=== PATIENT | male | born 1930 | race Caucasian/White ===

== ENCOUNTER 2016-05-30 19:40 | Emergency (ER) | payer BC ==
[~2016-05-30] VITALS: Ht 177.8 cm; Wt 77.3 kg
[~2016-05-30 19:40] MED LIST: ALBUAER2 INH; AMLO-110 PO; ASPEC325 PO; ATV/1 PO; CEPH500C PO; FLM4 PO; LISI-725 PO; MELO15TA3 PO; MULT-897 PO; OMEG10007 PO; PROP1SOL OPB; RSTOPS OP; TEMA15CA4 PO; TRAM-10 PO; [UNRECOGNIZED DRUG - OTHER] INH
[2016-05-30 19:45] VITALS: Ht 177.8 cm; Wt 77.3 kg
[2016-05-30] MEDS ORDERED: ALBUT/IPRATROP 3MG/0.5MG NEB 3 ML VIAL INH STA (21:07)
[2016-05-30] MEDS ORDERED: SODIUM CHLORIDE 0.9% 500ML 500 ML IV STA (21:07)
[2016-05-30] MEDS ORDERED: METHYLPREDNISOLONE 125 MG VIAL IV STA (21:07)
[2016-05-30 21:15] LABS: COMPLETE YES; EOS % 2.4 %; HEMATOCRIT 40.2 % (42-52); LYMPH % 35.7 %; LYMPH ABS # 0.75 K/uL (1.2-3.4); MEAN CELL VOLUME 93.7 fL (80-100); MEAN CORPUSCULAR HEMOGLOBIN 32.6 pg (25-34); MEAN CORPUSCULAR HGB CONC 34.8 g/dl (32-36); MEAN PLATELET VOLUME 10.8 fL (7.4-10.4); MONO % 11.4 %; NEUT % 50.5 %; PLATELET COUNT 111 K/uL (130-400); RED BLOOD COUNT 4.29 M/uL (4.7-6.1)
[2016-05-30 21:18] LABS: URINE APPEARANCE CLEAR (CLEAR); URINE BILIRUBIN NEG (NEG); URINE COLOR YELLOW; URINE EPITHELIAL CELL AUTO 0-5 /lpf (0-5); URINE NITRITE NEG (NEG); URINE SPECIFIC GRAVITY 1.006 (1.000-1.030); UROBILINOGEN NEG (NEG); ZZUR CULT IF INDIC CLEAN CATCH NO
--- NOTE | 2016-05-30 21:18 | EMERGENCY ROOM VISIT NOTE ---
History Report prepared by Mando: Vasiliy Rivera Under the Supervision of: Dr. Edward Jasmine M.D. First contact with patient: 21:01 Chief Complaint: FLU LIKE SX Stated Complaint: FLU History of Present Illness The patient is an 85 year old male with COPD who presents to the Emergency Room with complaints of a persistent cough beginning one week prior to arrival. He associates congestion, subjective intermittent fever, and weakness with today's symptoms. The patient states he was seen by his doctor a week ago and was prescribed Levaquin. He states he has two doses left, but he does not believe it has helped. The patient states he was at dinner tonight, when he went to sit down and became weak. He notes he uses inhalers for his COPD, in which, he uses one before bed, and the albuterol inhaler as needed. The patient denies wearing oxygen at home. He does not believe he has been on steroids. The patient notes he received his flu and pneumonia shots this year. He denies a history of pneumonia. The patient denies shortness of breath. Source of History: patient Onset: one week [employer] Position: other (global) Quality: other (cough) Timing: other (persistent) Associated Symptoms: + cough, + fevers, + weakness, No SOB Note: Associated symptoms: congestion. Review of Systems See HPI for pertinent positives & negatives. A total of 10 systems reviewed and were otherwise negative. Past Medical & Surgical Medical Problems: (1) Asthma (2) Hernia (3) HTN (hypertension) Family History Diabetes mellitus FH: heart disease Hypertension Social History Smoking Status: Never Smoker Alcohol Use: none Drug Use: none Marital Status: Occupation Status: retired Current/Historical Medications Scheduled Albuterol (Ventolin), 2 PUFFS INH QID PRN Amlodipine (Norvasc), 5 MG PO QAM Aspirin Enteric Coated (Ecotrin Or Generic *), 325 MG PO PRN Fish Oil ([place]-3), 1,000 MG PO DAILY Formoterol Fumarate (Foradil Aerolizer *), 1 INH BID Lisinopril (Zestril), 20 MG PO DAILY Lorazepam (Ativan), 1.5 MG PO HS Meloxicam (Mobic), 15 MG PO DAILY Multiple Vitamin (One Daily), 1 TAB PO DAILY Oseltamivir (Tamiflu), 75 MG PO BID Prednisone (Prednisone), 2 TAB PO DAILY Propylene Glycol (Ophth) (Systane Balance Restorati), 1 DROP OPB BID Tamsulosin Hcl (Flomax *), 0.4 MG PO HS Allergies Coded Allergies: Amoxicillin (Verified Allergy, Intermediate, red, 05/30/16) Clavulanic Acid (Verified Allergy, Intermediate, red, 05/30/16) Codeine (Verified Allergy, Mild, red, 05/30/16) Physical Exam Vital Signs Date Time Temp Pulse Resp B/P Pulse Ox O2 Delivery O2 Flow Rate FiO2 05/30/16 22:10 36.9 89 20 142/70 96 05/30/16 21:33 89 20 142/70 96 Nebulizer 05/30/16 19:45 36.9 86 20 155/83 95 Room Air Physical Exam GENERAL: Patient is in no acute distress. HEENT: No acute trauma, normocephalic atraumatic, mucous membranes moist, no nasal congestion, no scleral icterus. NECK: No stridor, no adenopathy, no meningismus, trachea is midline. LUNGS: Dry cough. Bilateral wheezing. Somewhat diminished breath sounds. Scattered occasional crackles. HEART: Without murmurs gallops or rubs, regular rate and rhythm. ABDOMEN: Soft, nontender, bowel sounds positive, no hernias, no peritonitis. EXTREMITIES: No cyanosis or edema, full range of motion of all the joints without pain or difficulty, no signs for acute trauma. NEUROLOGIC: Oriented x 3, no acute motor or sensory deficits, no focal weakness. SKIN: No rash, no jaundice, no diaphoresis. Medical Decision & Procedures ER Provider Diagnostic Interpretation: X-ray results as stated below per interpretation by me and the radiologist: CHEST ONE VIEW PORTABLE HISTORY: cough, wheezing COMPARISON: Chest 02/03/2014. FINDINGS: Bilateral shoulder arthroplasties. Punctate calcified granuloma within the right upper lobe. There is also punctate calcified granuloma within the left lung base. Otherwise, the lungs are clear. The heart is normal in size. No pleural effusions. No pneumothorax. IMPRESSION: No acute process. Electronically signed by: Yuriy Todd M.D. 05/30/2016 9:25 PM Dictated Date/Time: 05/30/2016 9:23 PM Laboratory Results 05/30/16 20:30 Red Blood Count 4.29, Mean Corpuscular Volume 93.7, Mean Corpuscular Hemoglobin 32.6, Mean Corpuscular Hemoglobin Concent 34.8, Mean Platelet Volume 10.8, Neutrophils (%) (Auto) 50.5, Lymphocytes (%) (Auto) 35.7, Monocytes (%) (Auto) 11.4, Eosinophils (%) (Auto) 2.4, Basophils (%) (Auto) 0.0, Neutrophils # (Auto ) 1.06, Lymphocytes # (Auto) 0.75, Monocytes # (Auto) 0.24, Eosinophils # (Auto ) 0.05, Basophils # (Auto) 0.00 05/30/16 20:30 Test 05/30/16 20:30 05/30/16 20:50 White Blood Count 2.10 K/uL (4.8-10.8) Red Blood Count 4.29 M/uL (4.7-6.1) Hemoglobin 14.0 g/dL (14.0-18.0) Hematocrit 40.2 % (42-52) Mean Corpuscular Volume 93.7 fL (80-100) Mean Corpuscular Hemoglobin 32.6 pg (25-34) Mean Corpuscular Hemoglobin Concent 34.8 g/dl (32-36) Platelet Count 111 K/uL (130-400) Mean Platelet Volume 10.8 fL (7.4-10.4) Neutrophils (%) (Auto) 50.5 % Lymphocytes (%) (Auto) 35.7 % Monocytes (%) (Auto) 11.4 % Eosinophils (%) (Auto) 2.4 % Basophils (%) (Auto) 0.0 % Neutrophils # (Auto) 1.06 K/uL (1.4-6.5) Lymphocytes # (Auto) 0.75 K/uL (1.2-3.4) Monocytes # (Auto) 0.24 K/uL (0.11-0.59) Eosinophils # (Auto) 0.05 K/uL (0-0.5) Basophils # (Auto) 0.00 K/uL (0-0.2) RDW Standard Deviation 45.7 fL (36.4-46.3) RDW Coefficient of Variation 13.3 % (11.5-14.5) Immature Granulocyte % (Auto) 0.0 % Immature Granulocyte # (Auto) 0.00 K/uL (0.00-0.02) Anion Gap 11.0 mmol/L (3-11) Est Creatinine Clear Calc Drug Dose 42.1 ml/min Estimated GFR () 57.3 Estimated GFR (Non- 49.4 BUN/Creatinine Ratio 13.2 (10-20) Calcium Level 8.7 mg/dl (8.5-10.1) Total Bilirubin 0.3 mg/dl (0.2-1) Aspartate Amino Transf (AST/SGOT) 84 U/L (15-37) Alanine Aminotransferase (ALT/SGPT) 58 U/L (12-78) Alkaline Phosphatase 64 U/L (45-117) Total Protein 6.1 gm/dl (6.4-8.2) Albumin 3.5 gm/dl (3.4-5.0) Globulin 2.6 gm/dl (2.5-4.0) Albumin/Globulin Ratio 1.3 (0.9-2) Urine Color YELLOW Urine Appearance CLEAR (CLEAR) Urine pH 7.0 (4.5-7.5) Urine Specific [place] 1.006 (1.000-1.030) Urine Protein NEG (NEG) Urine Glucose (UA) NEG (NEG) Urine Ketones NEG (NEG) Urine Occult Blood TRACE (NEG) Urine Nitrite NEG (NEG) Urine Bilirubin NEG (NEG) Urine Urobilinogen NEG (NEG) Urine Leukocyte Esterase NEG (NEG) Urine WBC (Auto) 0 /hpf (0-5) Urine RBC (Auto) 0-4 /hpf (0-4) Urine Hyaline Casts (Auto) 0 /lpf (0-5) Urine Epithelial Cells (Auto) 0-5 /lpf (0-5) Urine Bacteria (Auto) NEG (NEG) Influenza Type A Antigen POS for Influ A (NEG) Influenza Type B Antigen Neg for Influ B (NEG) Laboratory results reviewed by me. Medications Administered Medications (Trade) Dose Ordered Sig/Ascencion Route Start Time Stop Time Status Last Admin Dose Admin Sodium Chloride (Nss 500ml) 500 ml @ 999 mls/hr Q31M STAT IV 05/30/16 21:07 05/30/16 21:37 DC 05/30/16 21:32 999 MLS/HR Methylprednisolone Sodium Succinate (Solu-Medrol IV) 60 mg NOW STAT IV 05/30/16 21:07 05/30/16 21:10 DC 05/30/16 21:28 60 MG Albuterol/ Ipratropium (Duoneb) 3 ml NOW STAT INH 05/30/16 21:07 05/30/16 21:10 DC 05/30/16 21:27 3 ML Oseltamivir Phosphate (Tamiflu Cap) 75 mg NOW STAT PO 05/30/16 21:34 05/30/16 21:35 DC 05/30/16 22:10 75 MG ECG Indication: other (cough) Rate (beats per minute): 74 Rhythm: sinus rhythm Findings: 1st degree AV block, no acute ischemic change, no ectopy ED Course 2101: The patient was evaluated in room C3. A complete history and physical exam was performed. 2106: Ordered Duoneb 3 ml ING, Solu-Medrol IV 60 mg IV, Sodium Chloride 500 ml @ 999 mls/hr IV. 2133: Ordered Tamiflu Cap 75 mg PO. 2135: Reevaluated the patient at this time, and he was doing well. 2146: I spoke to SHERRILL Olivares (Hospitalist) about the patient's case, and he will see the patient on Saturday. 2149: Reevaluated the patient. Discussed results and discharge instructions: He verbalized understanding and agreement. The patient is ready for discharge. Medical Decision The differential diagnoses include but are not limited to: pneumonia, acute bronchitis, influenza. CHF, sinusitis, dehydration, anemia, flu-like illness. The patient has a low white count and a slightly low platelet count, he is not neutropenic. No anemia. The low counts are likely from viral suppression. No significant electrolyte abnormality, kidney failure or hepatitis. Urinalysis does not show infection. EKG shows a sinus rhythm, no acute ischemia. Chest film does not show pneumonia. Influenza testing is positive for influenza A. The patient was given IV saline, IV Solu-Medrol and a DuoNeb. He received oral Tamiflu. The patient will stop the Levaquin. I will start him on Tamiflu, a short burst of steroids, he will increase his use of albuterol. I did speak to the patient' s family doctor, the patient will be seen in the office in a couple of days for a recheck and repeat CBC. The patient was encouraged to return if worsening. Consults Time Called: 2137 Consulting Physician: SHERRILL Olivares (Hospitalist) Returned Call: 2146 I spoke to SHERRILL Olivares (Hospitalist) about the patient's case, and he will see the patient on Saturday. Impression Primary Impression: Influenza A Additional Impression: COPD exacerbation Scribe Attestation The scribe's documentation has been prepared under my direction and personally reviewed by me in its entirety. I confirm that the note above accurately reflects all work, treatment, procedures, and medical decision making performed by me. Departure Information Dispostion Home / Self-Care Prescriptions Prednisone (Prednisone) 20 Mg Tab 2 TAB PO DAILY for 4 Days, #8 TAB Prov: Edward Jasmine M.D. 05/30/16 Oseltamivir (Tamiflu) 75 Mg Cap 75 MG PO BID, #10 CAP Prov: Edward Jasmine M.D. 05/30/16 Referrals Elmo Lion M.D. (PCP) Forms HOME CARE DOCUMENTATION FORM, IMPORTANT VISIT INFORMATION Patient Instructions A Signature Page, My [facility] Additional Instructions rest albuterol 3 puffs every 4 hours prednisone daily for 4 more days--next dose around dinner tamiflu 2x per day for 5 days return if breathing worsens call your doctor and you should see him Saturday for a recheck you can stop the Levaquin Problem Qualifiers
[2016-05-30 21:19] LABS: MANUAL MICROSCOPIC REQUIRED? NO; REVIEW REQ? NO
--- NOTE | 2016-05-30 21:27 | DIAGNOSTIC IMAGING REPORT ---
CHEST ONE VIEW PORTABLE HISTORY: cough, wheezing COMPARISON: Chest 02/03/2014. FINDINGS: Bilateral shoulder arthroplasties. Punctate calcified granuloma within the right upper lobe. There is also punctate calcified granuloma within the left lung base. Otherwise, the lungs are clear. The heart is normal in size. No pleural effusions. No pneumothorax. IMPRESSION: No acute process. Electronically signed by: Yuriy Todd M.D. 05/30/2016 9:25 PM Dictated Date/Time: 05/30/2016 9:23 PM
[2016-05-30 21:30] LABS: BUN/CREATININE RATIO 13.2 (10-20); CALCIUM 8.7 mg/dl (8.5-10.1); CREATININE 1.3 mg/dl (0.60-1.40); POTASSIUM 4.2 mmol/L (3.5-5.1)
[2016-05-30 21:33] LABS: ALB/GLOB RATIO 1.3 (0.9-2)
[2016-05-30] MEDS ORDERED: OSELTAMIVIR PHOSPHATE 75 MG CAP PO STA (21:34)
[2016-05-30] MEDS ORDERED: PRED20TA PO (21:59)
[2016-05-30] MEDS ORDERED: OSEL75CA12 PO (21:59)
[2016-05-30 22:10] VITALS: BP 142/70; PULSE 89; TEMP 36.9; O2SAT 96
== END 2016-05-30 22:11 | disposition home or self-care (01) ==
LOC: C.EDB 19:41 → C.EDC 22:11
DX: J44.1 Chronic obstructive pulmonary disease with (acute) exacerbation (principal); J11.1 Influenza due to unidentified influenza virus with other respiratory manifestations; I10 Essential (primary) hypertension; Z83.3 Family history of diabetes mellitus; Z82.49 Family history of ischemic heart disease and other diseases of the circulatory system; Z79.82 Long term (current) use of aspirin; Z79.899 Other long term (current) drug therapy

== ENCOUNTER → 2016-06-01 | Outpatient (CLI) | payer BC ==
[~2016-06-01] MED LIST changes: -CEPH500C PO; +OSEL75CA12 PO; +PRED20TA PO; -RSTOPS OP; -TEMA15CA4 PO; -TRAM-10 PO
[2016-06-01 19:58] LABS: COMPLETE YES; HEMATOCRIT 40.6 % (42-52); IG% 0.3 %; LYMPH % 5.3 %; MEAN CORPUSCULAR HEMOGLOBIN 32.4 pg (25-34); MEAN CORPUSCULAR HGB CONC 34.5 g/dl (32-36); MONO % 9.7 %; NEUT % 84.7 %; PLATELET COUNT 156 K/uL (130-400); RED BLOOD COUNT 4.32 M/uL (4.7-6.1); WHITE BLOOD COUNT 7.49 K/uL (4.8-10.8)
== END | disposition home or self-care (01) ==
LOC: C.LABSPEC 12:16
PROVIDERS: ATTEND Internal Medicine
DX: D72.819 Decreased white blood cell count, unspecified (principal)

== ENCOUNTER → 2017-01-24 | Outpatient (CLI) | payer BC ==
[~2017-01-24] MED LIST changes: -OSEL75CA12 PO; -PRED20TA PO
[2017-01-24 13:25] LABS: BASO % 0.2 %; BASO ABS # 0.01 K/uL (0-0.2); COMPLETE YES; EOS % 3.3 %; HEMATOCRIT 42.2 % (42-52); IG% 0.2 %; LYMPH ABS # 1.19 K/uL (1.2-3.4); MEAN CELL VOLUME 96.3 fL (80-100); MEAN CORPUSCULAR HEMOGLOBIN 32.2 pg (25-34); MEAN CORPUSCULAR HGB CONC 33.4 g/dl (32-36); MEAN PLATELET VOLUME 10.7 fL (7.4-10.4); MONO % 12.3 %; PLATELET COUNT 153 K/uL (130-400); RED BLOOD COUNT 4.38 M/uL (4.7-6.1); WHITE BLOOD COUNT 4.57 K/uL (4.8-10.8)
[2017-01-24 13:42] LABS: ESTIMATED AVERAGE GLUCOSE 128 mg/dl; HA1C FLAG Normal (Normal)
[2017-01-24 14:01] LABS: ALT/SGPT 28 U/L (12-78); AST/SGOT 24 U/L (15-37); BLOOD UREA NITROGEN 19 mg/dl (7-18); BUN/CREATININE RATIO 14.8 (10-20); CARBON DIOXIDE 26 mmol/L (21-32); CHLORIDE 105 mmol/L (98-107); CHOLESTEROL 150 mg/dl (0-200); GLUCOSE 108 mg/dl (70-99); SODIUM 138 mmol/L (136-145)
[2017-01-24 14:06] LABS: ALB/GLOB RATIO 1.4 (0.9-2); ALKALINE PHOSPHATASE 57 U/L (45-117); HDL CHOLESTEROL 30 mg/dl; PROSTATE SPECIFIC ANTIGEN 0.699 ng/ml (0.000-4.000); TRIGLYCERIDES 240 mg/dl (0-150); VERY LOW DENSITY LIPOPROT CALC 48 mg/dl
== END | disposition home or self-care (01) ==
LOC: C.LABSPEC 12:45
PROVIDERS: ATTEND Internal Medicine
DX: I10 Essential (primary) hypertension (principal); E78.5 Hyperlipidemia, unspecified; R73.9 Hyperglycemia, unspecified; C61 Malignant neoplasm of prostate; M54.32 Sciatica, left side

== ENCOUNTER → 2017-01-25 | Outpatient (CLI) | payer BC | END | disposition home or self-care (01) | LOC: C.LABSPEC 14:51 | PROVIDERS: ATTEND Internal Medicine | DX: Z12.11 Encounter for screening for malignant neoplasm of colon (principal) ==

== ENCOUNTER → 2017-12-25 | Outpatient (CLI) | payer BC ==
[~2017-12-25] MED LIST changes: -AMLO-110 PO; +AMLO5TAB3 PO
--- NOTE | 2017-12-25 11:58 | DIAGNOSTIC IMAGING REPORT ---
LEFT HIP INJECTION UNDER FLUOROSCOPIC GUIDANCE CLINICAL HISTORY: Degenerative joint disease. Steroid injection. PROCEDURE: The risks, benefits, and alternatives to the procedure were discussed with the patient. Written informed consent was obtained. The patient was placed supine on the fluoroscopy table, and a left hip injection was performed under fluoroscopic guidance. The area was prepped and draped in the usual sterile fashion. The skin and soft tissues anesthetized with local 1% lidocaine. The left hip joint was accessed utilizing a 22-gauge needle, and intraarticular positioning was confirmed by injecting a small volume of Optiray 300. A single fluoroscopic image was saved. The prescribed dosage of 2 cc of betamethasone and 5 cc of 0.5% Naporin was then injected into the joint space. The procedure was well tolerated and without immediate complication. The patient left the department in satisfactory condition. FLUOROSCOPY TIME: 8 seconds. IMPRESSION: Successful steroid injection of the left hip under fluoroscopic guidance. Electronically signed by: Edward Zarate M.D. 12/25/2017 11:57 AM Dictated Date/Time: 12/25/2017 11:55 AM
== END | disposition home or self-care (01) ==
LOC: C.RADBC 10:26
PROVIDERS: ATTEND Orthopaedic Surgery
DX: M16.12 Unilateral primary osteoarthritis, left hip (principal)